=== PATIENT | female | born 1985 | race Hispanic/Latino ===

== ENCOUNTER 2020-06-12 22:42 | Emergency (ER) | payer BC ==
[2020-06-12 23:21] LABS: Bilirubin Negative (Negative); Blood, Urine Negative (Negative); Clarity Clear (Clear); Glucose, Urine (Dipstick) Normal (Negative); Ketone, Urine Negative (Negative); Leukocyte Negative Leu/uL (Negative); Nitrite Negative (Negative); Protein, Urine (Dipstick) Negative (Neg-Trace); Specific Gravity, Urine 1.013 (1.002-1.036); Urobilinogen Normal mg/dL (Less than 2)
[2020-06-12 23:27] LABS: Pregnancy Test - Urine (BHCG) Negative (Negative); Specific Gravity 1.013 (1.002-1.036)
[2020-06-12 23:28] LABS: Pregu Control Background? CLEAR/WHITE (CLR/WHITE); Pregu Control Bar Appear? YES (CONTROL BAR)
== END 2020-06-13 01:00 | disposition home or self-care (01) ==
LOC: ERS 22:42
DX: K59.00 Constipation, unspecified (principal)
CPT/HCPCS: 81003; 81025; 99283